=== PATIENT | female | born 1950 | race Caucasian/White ===

== ENCOUNTER 2017-01-01 16:37 | Inpatient (IN) | payer BC, MEDICARE ==
[2017-01-01] MEDS ORDERED: IOPAMIDOL 370 (76%) 100 ML VIAL IV ONE (16:38)
[2017-01-01] MEDS ORDERED: ONDANSETRON 4 MG/2ML 2 ML VIAL ONE (16:59)
[2017-01-01] MEDS ORDERED: HYDROMORPHONE HCL 1 MG/ML SYRINGE ONE ×2 (16:59→18:42)
[2017-01-01 17:08] LABS: ABSOLUTE NEUTROPHIL COUNT 4.4 K/mm3 (1.8-7.7); BASO % 0.4 % (0.2-1.0); EOS # 0.1 (0.0-0.5); EOS % 1.9 % (0.9-2.9); HEMOGLOBIN 13.6 gm/l (12.0-16.0); IMM NEUT% 0.3 % (0-1); LYMPH # 1.7 (1.0-4.8); LYMPH % 25.2 % (15-45); MEAN CELL VOLUME 86.3 fl (81.0-99.0); MEAN CORPUSCULAR HEMOGLOBIN 28.6 pg (27.0-31.0); MEAN CORPUSCULAR HGB CONC 33.2 g/dl (33.0-37.0); MEAN PLATELET VOLUME 10.6 fl (7.4-10.4); MONO # 0.5 (0.0-0.8); MONO % 7.9 % (4-12); NEUT % 64.3 % (43-75); PLATELET COUNT 233 K/mm3 (130-400)
[2017-01-01 17:29] LABS: ALB/GLOB RATIO 1.7 (>1.0); ALBUMIN 4.1 gm/dL (3.5-5.7); CALCIUM 9.5 mg/dL (8.6-10.3)
--- NOTE | 2017-01-01 19:21 | CT ---
EXAMINATION: Contrast enhanced CT scan of the abdomen and pelvis. CLINICAL INDICATION: Abdominal pain. History of multiple small bowel obstructions. COMPARISON: Prior CT scan dated 12/16/2014. TECHNIQUE: Oral contrast: None Following uneventful administration of 100 mL of Isovue 370, intravenously axial images were acquired from just above the domes of the diaphragm to the iliac crest. A CT scan of the pelvis was also obtained from the iliac crest to the initial tuberosities. Stacked axial, sagittal, and coronal images were reviewed. Findings: Abdomen CT: (Contrast-enhanced): The lung bases are clear and are without mass or pleural effusion. The liver is unremarkable. Patient status post cholecystectomy. There is no evidence of biliary obstruction. The spleen size and attenuation are within normal limits. The pancreas is normal in size and contours. No inflammatory stranding is identified. The pancreatic duct is unremarkable. The adrenals are unremarkable. The kidneys are without mass or hydronephrosis. No nephrolithiasis is identified. After chronic plaquing of the abdominal aorta is again noted. There is no aneurysm. Nasogastric tube decompresses the stomach and proximal small bowel. No distention is identified in the upper abdomen. Postsurgical changes of the lumbar spine are again noted. Pelvic CT: (Contrast -enhanced): High-grade small bowel obstruction is again noted near the surgical anastomosis. This is similar to the prior examinations. Small bowel stool sign is noted. The colon is decompressed. The uterus is surgically absent. there are no adnexal masses. No adenopathy is identified. Unremarkable the bladder is mildly distended. The distal ureters are within normal limits. T there is no pericecal inflammatory stranding. Postsurgical changes lumbar spine are similar. The overlying soft tissues are unremarkable. IMPRESSION: 1. High-grade small bowel obstruction near the surgical anastomosis low pelvis. This is similar to the prior CT scan of 12/16/2014. There is no evidence of perforation or free air. 2. Satisfactory positioning of nasogastric tube. 3. Prior cholecystectomy. 4. Atherosclerosis. 5. Fat-containing midline ventral hernias. 6. Post surgical changes lumbar spine-stable. 7. Mildly distended bladder. 8. Prior hysterectomy. Findings were discussed with Dr Garcia at 7:16 PM 01/01/2017.
[2017-01-01 20:18] LABS: SPECIFIC GRAVITY 1.015 (1.001-1.030); URINE BILIRUBIN NEGATIVE (NEGATIVE); URINE BLOOD NEGATIVE (NEGATIVE); URINE GLUCOSE (UA) NEGATIVE (NEGATIVE); URINE LEUKOCYTE ESTERASE 1+ (NEGATIVE); URINE NITRITE NEGATIVE (NEGATIVE); URINE PROTEIN NEGATIVE (NEGATIVE); URINE UROBILINOGEN NORMAL (0-1 mg/dl)
[2017-01-01 20:24] LABS: URINE APPEARANCE CLEAR; URINE COLOR YELLOW
[2017-01-01 20:32] LABS: URINE EPITHELIAL CELLS 0 /hpf; URINE RBC 0 /hpf
[2017-01-01 20:33] LABS: URINE BACTERIA 2+
[2017-01-01 21:15] VITALS: BMI 33.3
[2017-01-01] MEDS ORDERED: HYDROMORPHONE HCL 2 MG/ML SYRINGE IV PRN (21:51)
[2017-01-01] MEDS: HYDROMORPHONE HCL 1 MG/ML SYRINGE IV PRN (21:58)
[2017-01-01] MEDS ORDERED: SODIUM CHLORIDE 0.9% 100 ML IV PRN (22:20)
[2017-01-01] MEDS ORDERED: BLISTEX LIPSTICK 1 EACH TP PRN (22:20)
[2017-01-01] MEDS ORDERED: MENTHOL/CETYLPYRD 1 EACH LOZENGE PO PRN (22:20)
[2017-01-01] MEDS: ONDANSETRON 4 MG/2ML 2 ML VIAL IV PRN (22:40)
[2017-01-01] MEDS ORDERED: PUMP TUBING ONE (23:20)
[2017-01-01] MEDS: D5 1/2NS with 20 mEq KCL 1,000 ML IV SCH (23:25)
[2017-01-01] MEDS: ENOXAPARIN SODIUM 40 MG/0.4 ML SYRINGE SUB-Q SCH (23:25)
[2017-01-01] MEDS: PANTOPRAZOLE SODIUM 40 MG VIAL IV SCH (23:25)
[2017-01-02] MEDS: HYDROMORPHONE HCL 1 MG/ML SYRINGE IV PRN ×3 (00:49→20:53)
[2017-01-02] MEDS: ONDANSETRON 4 MG/2ML 2 ML VIAL IV PRN ×4 (04:07→20:33)
[2017-01-02 05:53] LABS: HEMOGLOBIN 13.4 gm/l (12.0-16.0); MEAN CELL VOLUME 88.2 fl (81.0-99.0); MEAN CORPUSCULAR HEMOGLOBIN 28.8 pg (27.0-31.0); MEAN CORPUSCULAR HGB CONC 32.7 g/dl (33.0-37.0); RED CELL DISTRIBUTION WIDTH 13.4 % (11.5-14.5)
[2017-01-02 06:20] LABS: CALCIUM 9.2 mg/dL (8.6-10.3)
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
[2017-01-02] MEDS: D5 1/2NS with 20 mEq KCL 1,000 ML IV SCH ×3 (07:34→23:50)
[2017-01-02] MEDS ORDERED: SODIUM CHLORIDE 0.9% FLUSH 10 ML ONE (07:36)
[2017-01-02] MEDS ORDERED: IV START KIT ONE (07:37)
--- NOTE | 2017-01-02 09:00 | RAD ---
Exam: Two-view abdomen COMPARISON: 12/16/[address] 01/01/2017 INDICATION: Follow-up small bowel obstruction. FINDINGS: Supine and upright views of the abdomen were obtained. NG tube remains within the proximal stomach. There are nondilated loops of gas-filled small bowel and colon. No fluid levels are identified. Bowel anastomosis and surgical clips are noted within the pelvis. Cholecystectomy clips are also appreciated. Hardware is again noted within the lumbar spine. IMPRESSION: No radiographic evidence of small bowel obstruction. NG tube remains in the stomach.
--- NOTE | 2017-01-02 11:16 | PDOC43 ---
- Subjective Chief Complaint: SBO Improved this AM but still with nausea. Minimal flatus. Subjective: Reports Pain Tolerable, Reports Flatus, Reports Nausea, Denies Bowel Movement, Denies Shortness of Breath, Denies Cough, Denies Chest Pain, Denies Abdominal Pain, Denies Vomiting, Denies Fever, Denies Chills - Objective Vital Signs Temperature 97.2 F 01/02/17 08:26 Pulse Rate 62 01/02/17 08:26 Respiratory Rate 18 01/02/17 08:26 Blood Pressure 141/66 01/02/17 08:26 O2 Saturation by Pulse Oximetry 94 01/02/17 08:26 Oxygen Delivery Method Room Air Oxygen Flow Rate 0 Intake and Output 01/01/17 01/02/17 01/03/17 06:59 06:59 06:59 Intake Total 580 Output Total 1175 175 Balance -595 -175 Tubes/Drains Output: Tubes and Drains Output NG/OG Output 350 General: Alert, Oriented x3, Cooperative, No Acute Distress HEENT: Atraumatic Lungs: Clear to Auscultation Bilaterally Cardiovascular: Regular Rate and Rhythm Abdomen: Soft, Hypoactive Bowel Sounds, Mild Distention, No Rebounding, No Involuntary Guarding Extremities: Normal Pulses, No Edema, No Tenderness Laboratory 01/02/17 05:30 01/02/17 05:30 Current Medications: Current meds reviewed in EMR. - Problems: Assessment/Plan (1) SBO (small bowel obstruction) Status: AcuteAssessment/Plan: Recurrent. Last one 2 years ago. Responding to NGT but not ready to pull yet. Con't supportive care. (2) Anxiety Status: ChronicAssessment/Plan: Holding usual wellbutrin, Buspar, Xanax while NPO. Use IV valium prn until able to take po. (3) HTN (hypertension) Qualifiers: Hypertension type: essential hypertension Qualifier Code: (I10) Essential (primary) hypertension Status: ChronicAssessment/Plan: Stable. Resume usual regimen when taking po. (4) H/O: CVA (cerebrovascular accident) Status: ChronicAssessment/Plan: CVA 6 months ago with no residual. Off Plavix while npo- resume when able. VTE Prophylaxis: Lovenox. Disposition: Anticipate d/c in 3-4 days.
[2017-01-02] MEDS: DIAZEPAM 5 MG/ML SYRINGE 2 ML IV PRN (14:32)
--- NOTE | 2017-01-02 18:12 | PDOC36 ---
Provider Note Subject: Urine Cx growing>100k of GNR but patient is not symptomatic-no treatment indicated at this time for presumed asymptomatic bacteruria.
[2017-01-02] MEDS: PANTOPRAZOLE SODIUM 40 MG VIAL IV SCH (22:54)
[2017-01-02] MEDS: ENOXAPARIN SODIUM 40 MG/0.4 ML SYRINGE SUB-Q SCH (22:54)
[2017-01-03] MEDS: DIAZEPAM 5 MG/ML SYRINGE 2 ML IV PRN (01:45)
[2017-01-03] MEDS: ONDANSETRON 4 MG/2ML 2 ML VIAL IV PRN (05:49)
[2017-01-03 06:48] LABS: HEMATOCRIT 38.7 % (37.0-47.0); HEMOGLOBIN 12.6 gm/l (12.0-16.0); MEAN CELL VOLUME 87.6 fl (81.0-99.0); MEAN CORPUSCULAR HEMOGLOBIN 28.5 pg (27.0-31.0); MEAN CORPUSCULAR HGB CONC 32.6 g/dl (33.0-37.0)
[2017-01-03] MEDS: HYDROMORPHONE HCL 1 MG/ML SYRINGE IV PRN (06:59)
[2017-01-03 07:10] LABS: CALCIUM 9.1 mg/dL (8.6-10.3)
[2017-01-03] MEDS: D5 1/2NS with 20 mEq KCL 1,000 ML IV SCH ×2 (07:44→13:58)
--- NOTE | 2017-01-03 11:28 | PDOC43 ---
- Subjective Chief Complaint: SBO Pt had tube clamped, reports still feeling ok. No abd pain. Passing flatus. Has had a couple BMs yesterday, and a looser one this am. Interested in getting tube removed. No other c/o. - Objective Vital Signs Temperature 98.7 F 01/03/17 07:23 Pulse Rate 67 01/03/17 07:23 Respiratory Rate 16 01/03/17 07:56 Blood Pressure 137/68 01/03/17 07:23 O2 Saturation by Pulse Oximetry 95 01/03/17 07:23 Oxygen Delivery Method Room Air Oxygen Flow Rate 0 Vital Signs Last 12 Hours Temp Pulse Resp BP Pulse Ox 01/03/17 07:56 16 01/03/17 07:23 98.7 F 67 16 137/68 95 01/03/17 02:00 98 F 71 20 138/69 96 01/03/17 01:36 18 Intake and Output 01/01/17 01/02/17 01/03/17 23:59 23:59 23:59 Intake Total 2130 1634 Output Total 19990 Balance 130 -266 Tubes/Drains Output: Tubes and Drains Output NG/OG Output 800 NG/OG Output 450 General: Alert, Cooperative, No Acute Distress HEENT: Atraumatic, Other (NG clamped.) Lungs: Clear to Auscultation Bilaterally Cardiovascular: Regular Rate and Rhythm Abdomen: Soft, Normal Bowel Sounds (quiet, but normal.), Non-Distended, No Tenderness, No Rebounding Extremities: No Edema Skin: Normal Color Neurological: Normal Speech Laboratory 01/03/17 06:10 01/03/17 06:10 01/03/17 06:10 MCHC 32.6 L Estimated GFR 56 L Current Medications: Current meds reviewed in EMR. Active Medications Benzocaine/Menthol (Cepacol) 1 each PO PRN PRN PRN Reason: Sore Throat Diazepam (Valium) 5 mg IV BID PRN PRN Reason: Anxiety Last Admin: 01/03/17 01:45 Dose: 5 mg Enoxaparin Sodium (Lovenox) 40 mg SUB-Q Q24H [facility] Last Admin: 01/02/17 22:54 Dose: 40 mg Hydromorphone HCl (Dilaudid) 1 - 2 mg IV Q1H PRN PRN Reason: Pain Last Admin: 01/03/17 06:59 Dose: 1 mg Hydromorphone HCl (Dilaudid) 1 - 2 mg IV Q1H PRN PRN Reason: Pain Potassium Chloride/Dextrose/Sod Cl (D51/2ns With 20 Meq Kcl) 1,000 mls @ 125 mls/hr IV .Q8H [facility] Last Admin: 01/03/17 07:44 Dose: 125 mls/hr Sodium Chloride (Sodium Chloride 0.9%) 100 mls @ 25 mls/hr IV PRN PRN PRN Reason: Flush Ondansetron HCl (Zofran) 4 mg IV Q3H PRN PRN Reason: Nausea/Vomiting Last Admin: 01/03/17 05:49 Dose: 4 mg Pantoprazole Sodium (Protonix) 40 mg IV Q24H [facility] Last Admin: 01/02/17 22:54 Dose: 40 mg Petrolatum/Paraffin/Mineral Oil (Blistex) 1 each TP PRN PRN PRN Reason: Dry and/or chapped lips Sodium Chloride (Normal Saline 10ml Flush) 10 - 50 ml IV PRN PRN PRN Reason: IV Flush Last Admin: 01/02/17 22:54 Dose: 10 ml Sodium Chloride (Normal Saline 10ml Flush) 10 ml IV Q8HR [facility] Last Admin: 01/03/17 09:31 Dose: Not Given - Problems: Assessment/Plan (1) SBO (small bowel obstruction) Status: AcuteAssessment/Plan: Recurrent. Last one 2 years ago. Responding to NG, anticipate removal later today. Con't supportive care. (2) Anxiety Status: ChronicAssessment/Plan: Holding usual wellbutrin, Buspar, Xanax while NPO. Using IV valium prn until able to take po. (3) HTN (hypertension) Qualifiers: Hypertension type: essential hypertension Qualifier Code: (I10) Essential (primary) hypertension Status: ChronicAssessment/Plan: Stable. Resume usual regimen when taking po. (4) H/O: CVA (cerebrovascular accident) Status: ChronicAssessment/Plan: CVA 6 months ago with no residua. Off Plavix while npo - resume when able. VTE Prophylaxis: Lovenox. Disposition: Anticipate d/c in 1-2 days.
[2017-01-03] MEDS ORDERED: ALPRAZOLAM 0.5 MG TABLET PO PRN (20:05)
[2017-01-03] MEDS ORDERED: ALPRAZOLAM 0.25 MG TABLET PO PRN (20:26)
[2017-01-04] MEDS: ENOXAPARIN SODIUM 40 MG/0.4 ML SYRINGE SUB-Q SCH (00:42)
[2017-01-04] MEDS: PANTOPRAZOLE SODIUM 40 MG VIAL IV SCH (00:42)
--- NOTE | 2017-01-04 07:11 | PDOC43 ---
- Subjective Chief Complaint: SBO Patient reports feeling well since getting NG out. Slept well. No GI c/o. No nausea, no vomiting. Eager to go home. - Objective Vital Signs Temperature 98.7 F 01/04/17 01:00 Pulse Rate 76 01/04/17 01:00 Respiratory Rate 18 01/04/17 01:00 Blood Pressure 148/65 01/04/17 01:00 O2 Saturation by Pulse Oximetry 96 01/04/17 01:00 Oxygen Delivery Method Room Air Oxygen Flow Rate 0 Vital Signs Last 12 Hours Temp Pulse Resp BP Pulse Ox 01/04/17 01:00 98.7 F 76 18 148/65 96 01/03/17 19:36 98.5 F 73 18 153/69 95 Intake and Output 01/02/17 01/03/17 01/04/17 23:59 23:59 23:59 Intake Total 2130 3515 600 Output Total 1999 1950 1690 Balance 130 1565 -1090 Tubes/Drains Output: Tubes and Drains Output NG/OG Output 50 General: Alert, Cooperative, No Acute Distress HEENT: Atraumatic Lungs: Clear to Auscultation Bilaterally, Normal Air Movement Cardiovascular: Regular Rate and Rhythm Abdomen: Soft, Normal Bowel Sounds, Non-Distended, No Tenderness, No Rebounding , No Involuntary Guarding Extremities: No Edema, No Tenderness Skin: Normal Color Neurological: Normal Speech Psych/Mental Status: Normal Affect, Normal Mood Laboratory 01/03/17 06:10 01/03/17 06:10 01/03/17 06:10 Estimated GFR 56 L Current Medications: Current meds reviewed in EMR. Active Medications Alprazolam (Xanax) 0.5 mg PO BID PRN PRN Reason: Anxiety Last Admin: 01/03/17 20:38 Dose: 0.5 mg Benzocaine/Menthol (Cepacol) 1 each PO PRN PRN PRN Reason: Sore Throat Diazepam (Valium) 5 mg IV BID PRN PRN Reason: Anxiety Last Admin: 01/03/17 01:45 Dose: 5 mg Enoxaparin Sodium (Lovenox) 40 mg SUB-Q Q24H [facility] Last Admin: 01/04/17 00:42 Dose: 40 mg Hydromorphone HCl (Dilaudid) 1 - 2 mg IV Q1H PRN PRN Reason: Pain Last Admin: 01/03/17 06:59 Dose: 1 mg Hydromorphone HCl (Dilaudid) 1 - 2 mg IV Q1H PRN PRN Reason: Pain Sodium Chloride (Sodium Chloride 0.9%) 100 mls @ 25 mls/hr IV PRN PRN PRN Reason: Flush Ondansetron HCl (Zofran) 4 mg IV Q3H PRN PRN Reason: Nausea/Vomiting Last Admin: 01/03/17 05:49 Dose: 4 mg Pantoprazole Sodium (Protonix) 40 mg IV Q24H [facility] Last Admin: 01/04/17 00:42 Dose: 40 mg Petrolatum/Paraffin/Mineral Oil (Blistex) 1 each TP PRN PRN PRN Reason: Dry and/or chapped lips Sodium Chloride (Normal Saline 10ml Flush) 10 - 50 ml IV PRN PRN PRN Reason: IV Flush Last Admin: 01/04/17 00:42 Dose: 10 ml Sodium Chloride (Normal Saline 10ml Flush) 10 ml IV Q8HR [facility] Last Admin: 01/04/17 02:11 Dose: Not Given - Problems: Assessment/Plan (1) SBO (small bowel obstruction) Status: ResolvedAssessment/Plan: Recurrent and now resolved. Last one 2 years ago. NG out 01/03. Anticipate advancing diet, and consider for DC this afternoon. (2) Anxiety Status: ChronicAssessment/Plan: Resuming usual wellbutrin, Buspar, Xanax (3) HTN (hypertension) Qualifiers: Hypertension type: essential hypertension Qualifier Code: (I10) Essential (primary) hypertension Status: ChronicAssessment/Plan: Stable. Resume usual regimen po regimen (4) H/O: CVA (cerebrovascular accident) Status: ChronicAssessment/Plan: CVA 6 months ago with no residua. Off Plavix while npo - resume now taking PO VTE Prophylaxis: Lovenox. Disposition: Anticipate d/c if marlon PO well.
[2017-01-04] MEDS ORDERED: LACTULOSE 20 G/30 ML UDCUP PO PRN (07:12)
[2017-01-04] MEDS ORDERED: ALPRAZOLAM 0.5 MG TABLET PO PRN (07:12)
[2017-01-04] MEDS ORDERED: BUSPIRONE HCL 10 MG TABLET PO PRN (07:12)
[2017-01-04] MEDS ORDERED: HYOSCYAMINE SULFATE 0.125 MG TABLET PO PRN (07:12)
[2017-01-04] MEDS ORDERED: GABAPENTIN 300 MG CAPSULE PO SCH ×2 (09:00→21:00)
[2017-01-04] MEDS ORDERED: CLOPIDOGREL BISULFATE 75 MG TABLET PO SCH (09:00)
[2017-01-04] MEDS ORDERED: EZETIMIBE 10 MG TABLET PO SCH (09:00)
[2017-01-04] MEDS ORDERED: ACYCLOVIR 400 MG TABLET PO SCH (09:00)
[2017-01-04] MEDS ORDERED: LISINOPRIL 20 MG TABLET PO SCH (09:00)
[2017-01-04] MEDS ORDERED: BUPROPION HCL 150 MG SR TABLET PO SCH (09:00)
[2017-01-04] MEDS ORDERED: HYDROCHLOROTHIAZIDE 25 MG TABLET PO SCH (09:00)
[2017-01-04 09:03] VITALS: BP 150/80
--- NOTE | 2017-01-04 11:15 | DS ---
ANTIONE GOMEZ [id number] DATE OF ADMISSION: 01/01/2017 DATE OF DISCHARGE: 01/04/2017 DISCHARGE DIAGNOSES: 1. Small bowel obstruction, resolved with NG decompression. 2. Hypertension, controlled. 3. History of anxiety. 4. Dyslipidemia. 5. Recent stroke six months ago, without significant residua. 6. E-coli urinary tract infection. REASON FOR ADMISSION: The patient is a 66-year-old female with a history of recurrent small bowel obstruction, with the previous one being about two years ago. She had onset of abdominal pain the evening prior to admission. She treated herself with lactulose and felt a bit better, but as the day went on she had more diffuse abdominal pain and distention. She recognized this as being similar to her previous bowel obstructions and presented to the ER, and on CT of the abdomen was noted to have evidence of a high-grade small bowel obstruction near the surgical anastomosis low pelvis, similar to the prior CT scan of 12/16/2014. No perforation or free air. The CT had also shown an NG tube placed, prior cholecystectomy, atherosclerosis, fat-containing midline ventral hernias, postsurgical change lumbar spine, mildly distended bladder and prior hysterectomy. HOSPITAL COURSE: The patient was referred to the Hospitalist Service. Her admission lab showed a white count of 6.9, hemoglobin 13.6 and platelets 223. Chemistry profile showed a sodium of 139, potassium 3.8, chloride 103, BUN of 17, creatinine 1.0 and glucose 171. Liver enzymes are normal. Lipase of 37. Urinalysis showed a specific gravity of 1.015, 5-10 white cells, zero red cells, zero epithelial cells and 2+ bacteria. Urine culture showed greater than 100,000 E-coli, pansensitive. The patient was managed with NG decompression and by 01/03/2017 she tolerating clamping well and had good tolerance for this. It was removed on the afternoon of 01/03/2017 and she tolerated a clear liquid diet fine through the night, and by 01/04/2017 she was feeling hungry and had resolution of her symptoms. Her culture returned back on 01/04/2017 and the patient has numerous allergies, so will be considered for discharge with Bactrim DS one by mouth twice a day x 3 days. DISCHARGE FOLLOW-UP: Follow-up is with Dr. Seth Alfredo in seven to ten days. CONDITION ON DISCHARGE: Good, return to baseline. cc: Dr. Seth Alfredo in [place]
== END 2017-01-04 11:34 | disposition home or self-care (01) | DRG 389 ==
LOC: ED 16:37 → MS 19:30
PROVIDERS: ADMIT Family Medicine; ATTEND Family Medicine
PROC: 0D9670Z Drainage of Stomach with Drainage Device, Via Natural or Artificial Opening (ICD-10-PCS; principal; 2017-01-01)
DX: K56.60 Unspecified intestinal obstruction (principal); N39.0 Urinary tract infection, site not specified; I10 Essential (primary) hypertension; F41.9 Anxiety disorder, unspecified; E78.5 Hyperlipidemia, unspecified; Z86.73 Personal history of transient ischemic attack (TIA), and cerebral infarction without residual deficits; B96.20 Unspecified Escherichia coli [E. coli] as the cause of diseases classified elsewhere